=== PATIENT | male | born 1980 | race Caucasian/White ===

== ENCOUNTER 2017-05-06 02:17 | Emergency (ER) | payer BC ==
[~2017-05-06] VITALS: Ht 185.4 cm; Wt 99.8 kg
[2017-05-06 02:23] VITALS: BP 112/90; Ht 185.4 cm; Wt 99.8 kg
== END 2017-05-06 03:36 | disposition left against medical advice (07) ==
LOC: ED 02:17
DX: Z53.21 Procedure and treatment not carried out due to patient leaving prior to being seen by health care provider (principal)